=== PATIENT | male | born 1950 | race Caucasian/White ===

== ENCOUNTER 2021-01-10 16:17 | Emergency (ER) | payer MEDICARE ==
[~2021-01-10 16:17] MED LIST: ASPIRIN 325MG325 MG PO; ASPIRIN EC81 MG PO; ATORVASTATIN CA20 MG PO; ATORVASTATIN CA40 MG PO; BRILINTA 90 MG90 MG PO; CYCLOBENZAPRINE10 MG PO; FLOMAX0.4 MG PO; GLUCOSE4 GM PO; HYDROCHLOROTHIA25 MG PO; LOPRESSOR 25 MG25 MG PO; NEURONTIN 300300 MG PO; NOVOLOG MI100 UNIT/1 SQ; RESTORIL30 MG PO; VIAGRA100 MG PO; XYLOCAINE 5% OI35 GM TOP
[2021-01-10] MEDS ORDERED: AUGMENTIN 875-1 EACH PO (19:19)
== END 2021-01-10 19:40 | disposition home or self-care (01) ==
LOC: ER1 16:17
DX: S90.851A Superficial foreign body, right foot, initial encounter (principal); E11.9 Type 2 diabetes mellitus without complications; F17.290 Nicotine dependence, other tobacco product, uncomplicated; W45.8XXA Other foreign body or object entering through skin, initial encounter
CPT/HCPCS: 73630; 99283

== ENCOUNTER → 2021-11-29 | Outpatient (CLI) | payer MEDICARE ==
[~2021-11-29] MED LIST changes: +AUGMENTIN 875-1 EACH PO
== END ==
LOC: KOH-I 10:10
DX: M25.561 Pain in right knee (principal); M25.551 Pain in right hip; G89.29 Other chronic pain; S70.351A Superficial foreign body, right thigh, initial encounter; M25.461 Effusion, right knee
CPT/HCPCS: 73502; 73562